=== PATIENT | male | born 1965 | race Caucasian/White ===

== ENCOUNTER 2016-11-01 11:36 | Inpatient (IN) | payer BC ==
[~2016-11-01] VITALS: Ht 185.4 cm; Wt 112.7 kg
[2016-11-01] MEDS ORDERED: ULTRAM50 MG PO (12:46)
[2016-11-01] MEDS ORDERED: XANAX0.25 MG PO (12:46)
[2016-11-01] MEDS ORDERED: DESERYL100 MG PO (12:47)
[2016-11-01] MEDS ORDERED: VOLTAREN25 MG PO (12:48)
[2016-11-01] MEDS ORDERED: VIBRAMYCIN 100100 MG PO (12:49)
[2016-11-01] MEDS ORDERED: BENADRYL25 MG PO (12:49)
[2016-11-01] MEDS ORDERED: LANTUS INSULIN10 ML SC (12:50)
[2016-11-01 12:59] VITALS: BP 123/67; Ht 185.4 cm; Wt 112.7 kg
[2016-11-01 14:18] LABS: BASOPHILS 0.6 % (0-2); EOSINOPHILS 5.2 % (0-7); HEMOGLOBIN 14.9 g/dL (13.5-17.5); IMMATURE GRANULOCYTES 0.2 % (0-5); LYMPHOCYTES 34.4 % (15-50); MCH 28.8 pg (26.0-34.0); MCHC 33.9 g/dL (31.0-37.0); MCV 85.1 fL (80.0-100.0); MEAN PLATELET VOLUME 11.1 fL (7.4-10.4); MONOCYTES 11.3 % (2-11); NEUTROPHILS 48.3 % (40-80); PLATELET COUNT 275 10x3/uL (130-400); RBC 5.17 10x6/uL (4.20-6.10)
[2016-11-01 14:31] LABS: ALBUMIN 3.2 g/dL (3.4-5.0); ALKALINE PHOSPHATASE 57 U/L (46-116); ALT (SGPT) 42 U/L (10-68); BILIRUBIN - TOTAL 0.33 mg/dL (0.2-1.3); CALC OSMOLALITY 286 mosm/kg (275-300); CALCIUM 8.9 mg/dL (8.5-10.1); CARBON DIOXIDE 28.4 mmol/L (21.0-32.0); CHLORIDE - SERUM 101 mmol/L (98-107); GLUCOSE 289 mg/dL (74-106); POTASSIUM - SERUM 4.1 mmol/L (3.5-5.1); PROTEIN - SERUM 7.6 g/dL (6.4-8.2); SODIUM 138 mmol/L (136-145); UREA NITROGEN 12 mg/dL (7-18); eGFR NON AFRICAN AMERICAN 83 mL/min (90-120)
[2016-11-01 14:39] LABS: HEMOGLOBIN A1C 10.1 % (4.8-6.0)
[2016-11-01 15:28] LABS: ERYTHROCYTE SEDIMENTATION RATE 4 mm/hr (0-20)
[2016-11-01 15:58] VITALS: BP 124/81
[2016-11-01 20:00] VITALS: BP 115/62
[2016-11-02] VITALS: BP 110/65
[2016-11-02 04:00] VITALS: BP 113/59
--- NOTE | 2016-11-02 06:12 | NUR ---
PATIENT RESTING IN BED AND DENIES NEEDS AT THIS TIME. BED IN LOWEST POSITION AND CALL LIGHT WITHIN REACH. ENCOURAGED THE PATIENT TO CALL IF HE HAS NEEDS.
--- NOTE | 2016-11-02 07:52 | NUR ---
AM ROUNDING- RECEIVED REPORT FROM [employer] S[employer]ARD MATCHER NURSE. PT IS CURRENTLY LAYING IN BED ON BACK WITH EYES OPEN RESTING REQUESTING CLEAN PILLOW CASES AND TOWELS DUE TO SKIN "WEEPING" AROUND TATTOO SITE ON FRONT OF CHEST AREA. NAVNEET VALLADARES GAVE PT CLEAN LINEN REQUESTED. IN CONTACT ISOLATION. ON ROOM AIR. NO MONITOR. IV SEEN TO LEFT FOREARM WITH NS RUNNING AT K[facility] (10CC). NO NEED AT CURRENT TIME. WILL CONTINUE TO MONITOR AND CONTINUE WITH PLAN OF CARE.
[2016-11-02 08:05] VITALS: BP 131/75
[2016-11-02 12:12] VITALS: BP 130/71
[2016-11-02 16:07] VITALS: BP 124/77
--- NOTE | 2016-11-02 17:10 | NUR ---
PT IS SITTING UP IN BED WITH EYES OPEN RESTING. PT C/O 6/10 GENERALIZED PAIN. PT GIVEN PRN PAIN MEDICAITON ORDERED. NO OTHER NEED AT CURRENT TIME. WILL CONTINUE TO MONITOR.
--- NOTE | 2016-11-02 18:38 | NUR ---
PT IS CURRENTLY SITTING UP IN BED WITH EYES OPEN RESTING. PT DENIES ANY NEED AT CURRENT TIME. PT REQUEST THAT HE HAVE A SHOWER. I TOLD PT HE CAN BE UNHOOKED ONCE IV ANTIBIOTICS ARE FINISHED. I WILL PASS THIS ALONG IN REPORT. NO NEED AT CURRENT TIME. WILL CONTINUE TO MONITOR.
[2016-11-02 20:00] VITALS: BP 136/84
[2016-11-03] VITALS: BP 123/83
--- NOTE | 2016-11-03 02:54 | NUR ---
ASSESSED, REMAINS IN CONTACT ISOLATION. ASLEEP WITH EASY RESPIRATIONS. THE BED IS LOW, RAIS UP X'S 2 WITH THE CALL LIGHT AT HAND.
[2016-11-03 08:39] VITALS: BP 131/80
[2016-11-03] MEDS ORDERED: LANTUS INSULIN10 ML SC (09:27)
[2016-11-03 12:00] VITALS: BP 98/71
[2016-11-03 16:00] VITALS: BP 117/69
[2016-11-03 19:00] VITALS: BP 113/65
[2016-11-04 04:00] VITALS: BP 117/71
--- NOTE | 2016-11-04 07:45 | NUR ---
RESTING, BED LOWEST POSITION, DENIES NEEDS, CALL LIGHT IN REACH, WILL CONTINUE TO MONITOR
--- NOTE | 2016-11-04 09:47 | NUR ---
REC'D.IN BED EYES CLOSED RESP DEEP AND EVEV WILL CONTINUE TO MONITOR FOR ANY CHGES. AND FOLLOW CURRENT PLAN OF CARE.
[2016-11-04 10:16] VITALS: BP 119/79
[2016-11-04 12:09] VITALS: BP 116/75
[2016-11-04 15:57] VITALS: BP 120/75
[2016-11-04] MEDS ORDERED: HUMALOG 30100 UNITS/ SC (16:13)
[2016-11-04] MEDS ORDERED: LANTUS INSULIN10 ML SC (16:13)
--- NOTE | 2016-11-04 17:20 | NUR ---
DISCHARGE PAPERS AND INSTRUCTIONS GIVEN, QUESTIONS ANSWERED, IV REMOVED TIP INTACT, DISCHARGED PER WC WITH BELONGINGS
== END 2016-11-04 17:20 | disposition home or self-care (01) | DRG 603 ==
LOC: D.MS 11:36 → OBSVTIME 11:37 → D.MS 12:05
PROVIDERS: ADMIT Family Medicine
DX: L03.313 Cellulitis of chest wall (principal); E11.9 Type 2 diabetes mellitus without complications; E03.9 Hypothyroidism, unspecified; E78.5 Hyperlipidemia, unspecified; H57.8 Other specified disorders of eye and adnexa; Z87.891 Personal history of nicotine dependence; L81.8 Other specified disorders of pigmentation; Z79.4 Long term (current) use of insulin; Z91.14 Patient's other noncompliance with medication regimen

== ENCOUNTER 2017-02-08 08:52 | Observation (INO) | payer BC ==
[~2017-02-08 08:52] MED LIST: BENADRYL25 MG PO; DESERYL100 MG PO; HUMALOG 30100 UNITS/ SC; LANTUS INSULIN10 ML SC; ULTRAM50 MG PO; VIBRAMYCIN 100100 MG PO; VOLTAREN25 MG PO; XANAX0.25 MG PO
[2017-02-08 09:30] LABS: BASOPHILS 0.6 % (0-2); HEMATOCRIT 43.5 % (42.0-54.0); HEMOGLOBIN 14.7 g/dL (13.5-17.5); IMMATURE GRANULOCYTES 0.1 % (0-5); LYMPHOCYTES 31.7 % (15-50); MCH 29.3 pg (26.0-34.0); MCHC 33.8 g/dL (31.0-37.0); MCV 86.7 fL (80.0-100.0); MEAN PLATELET VOLUME 10.2 fL (7.4-10.4); MONOCYTES 11.4 % (2-11); NEUTROPHILS 54.2 % (40-80); PLATELET COUNT 291 10x3/uL (130-400); RBC 5.02 10x6/uL (4.20-6.10); RDW 14.8 % (11.5-14.5); WBC 8.4 10x3/uL (4.8-10.8)
[2017-02-08 09:45] LABS: ALBUMIN 3.4 g/dL (3.4-5.0); ALKALINE PHOSPHATASE 48 U/L (46-116); ALT (SGPT) 48 U/L (10-68); BILIRUBIN - TOTAL 0.43 mg/dL (0.2-1.3); CALC OSMOLALITY 289 mosm/kg (275-300); CALCIUM 9.4 mg/dL (8.5-10.1); CARBON DIOXIDE 25.6 mmol/L (21.0-32.0); CHLORIDE - SERUM 102 mmol/L (98-107); GLUCOSE 324 mg/dL (74-106); POTASSIUM - SERUM 4.4 mmol/L (3.5-5.1); PROTEIN - SERUM 7.8 g/dL (6.4-8.2); SODIUM 139 mmol/L (136-145); UREA NITROGEN 10 mg/dL (7-18); eGFR NON AFRICAN AMERICAN 83 mL/min (90-120)
[2017-02-08 09:56] LABS: CHOL - HDL RATIO 4.6 ratio (2.3-4.9); CHOLESTEROL, TOTAL 166 mg/dL (0-200); CKMB 0.7 U/L (0.0-3.6); CREATINE KINASE 125 UL (21-232); HDL CHOLESTEROL 36 mg/dL (32-96); LDL CHOLESTEROL 112 mg/dL (0-100); LDL-HDL RATIO 3.1 ratio (1.5-3.5); TRIGLYCERIDE 92 mg/dL (30-200)
[2017-02-08 09:57] LABS: TROPONIN-I < 0.017 ng/mL (0.000-0.060)
--- NOTE | 2017-02-08 13:35 | NUR ---
RECEIVED PT TO ROOM 2118 VIA W/C FROM ER IN STABLE CONDITION DENIES ANY CHEST PAIN AT THIS TIME TELEMETRY APPLIED SR RATE 63 RESP UNLABORED NAD NOTED
[2017-02-08 13:45] LABS: CKMB 0.4 U/L (0.0-3.6); CREATINE KINASE 127 UL (21-232); TROPONIN-I < 0.017 ng/mL (0.000-0.060)
[2017-02-08 14:08] VITALS: BP 131/77; BMI 37.6
[2017-02-08] MEDS ORDERED: [UNRECOGNIZED DRUG - OTHER] PO (14:24)
[2017-02-08 16:00] VITALS: BP 144/88
--- NOTE | 2017-02-08 17:34 | NUR ---
PT DOES NOT WANT TO CHECK FSBS AT THIS TIME WILL DO IT AT BEDTIME STATES WILL TAKE LANTUS INSULIN AT BEDTIME
[2017-02-08 19:07] LABS: CKMB 0.4 U/L (0.0-3.6); CREATINE KINASE 123 UL (21-232)
[2017-02-08 19:09] LABS: TROPONIN-I < 0.017 ng/mL (0.000-0.060)
[2017-02-08 19:26] VITALS: BP 143/89
--- NOTE | 2017-02-08 19:43 | NUR ---
3RD SET OF CE NORMAL. PT DC'D PER ORDERS. IV TO LFA DC'D WITH CATHETER INTACT. VSS. SR PER CM. PT DENIED ANY DISCOMFORT. TO POV VIA W/C WITH FRIEND AT SIDE.
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
== END 2017-02-08 19:45 | disposition home or self-care (01) ==
LOC: D.ER 08:52 → D.M2 12:39 → OBSVTIME 12:39 → D.M2 19:45
PROVIDERS: Family Medicine; ADMIT Family Medicine
DX: R55 Syncope and collapse (principal); R07.9 Chest pain, unspecified; R51 Headache; E11.9 Type 2 diabetes mellitus without complications; Z79.4 Long term (current) use of insulin; E78.5 Hyperlipidemia, unspecified; E03.9 Hypothyroidism, unspecified